=== PATIENT | male | born 1960 | race Native Hawaiian/Other Pacific Islander ===

== ENCOUNTER 2016-12-16 08:19 | Day surgery (SDC) | payer OTHER ==
[2016-12-03 08:27] VITALS: BMI 28.5
[2016-12-16] MEDS ORDERED: Lidocaine 2% w Epi 1:100,000 Inj IJ ONE (09:32)
--- NOTE | 2016-12-16 10:21 | PCM.SURG1 ---
Surgeon's Initial Post Op Note - Surgeon's Notes Surgeon: Dr. Spencer Brass Pourer: Tana Dietrich PGY2 Type of Anesthesia: Local Pre-Operative Diagnosis: back cyst Operative Findings: Back cyst 2x2cm Post-Operative Diagnosis: Same Operation Performed: Excision of back cyst Specimen/Specimens Removed: Back cyst [id number] Estimated Blood Loss: EBL {In ML}: 1 Blood Products Given: N/A Drains Used: No Drains Post-Op Condition: Good Date of Surgery/Procedure: 12/16/16 Time of Surgery/Procedure: 10:21
[2016-12-16 10:54] VITALS: BP 150/91; PULSE 60; RESP 18; TEMP 98.3; O2SAT 96
--- NOTE | 2016-12-17 22:06 | OP ---
PROCEDURE DATE: 12/16/2016 SURGEON: Ashish Spencer MD RIDES SUPERVISOR: Dr. Tana Dietrich. ANESTHESIA: Local 1% lidocaine with epinephrine. PREOPERATIVE DIAGNOSIS: Sebaceous cyst, upper back. POSTOPERATIVE DIAGNOSIS: Sebaceous cyst, upper back. PROCEDURE: Excision of the sebaceous cyst, upper back. DESCRIPTION OF PROCEDURE: With the patient in the prone position, the upper back and lower neck were prepped and draped in the usual sterile manner. A 2-cm rounded mass was noted near the midline of the upper back just below the lower neck with a central punctum. The skin surrounding the mass was infiltrated with 2% lidocaine with epinephrine. An elliptical incision was made encompassing the area of the visible punctum, taken down through the full thickness of skin. The cyst wall was encountered and sharply dissected free of the surrounding subcutaneous tissue. There was noted to be a significant thickening of the surrounding tissue consistent with possible previous inflammation, and the cyst was sharply dissected free of the surrounding tissue and removed. The operative site was examined for hemostasis. Small bleeders were cauterized and closure was performed with running subcuticular suture of 4-0 Monocryl and Steri-Strips. A dry sterile dressing was applied. The patient tolerated the procedure well and transferred to day stay in stable condition. Estimated blood loss for the procedure was 1 mL. Ashish Spencer MD
== END 2016-12-16 10:58 | disposition home or self-care (01) ==
LOC: C.SDS 08:19
PROVIDERS: ATTEND Specialist
DX: L72.3 Sebaceous cyst (principal)

== ENCOUNTER 2016-12-24 10:48 | Inpatient (IN) | payer OTHER ==
[2016-12-24 10:48] VITALS: BMI 28.5
--- NOTE | 2016-12-24 11:02 | C.PDOC ---
History Of Present Illness <Prachi Markham - Last Filed: 12/24/16 14:52> <Jordana Telelz - Last Filed: 12/27/16 13:23> 56 y/o male brought to ED by EMS for evaluation of syncope this morning and head injury. At ED patient states she is feeling hot, lightheaded and room spinning since yesterday. Patient reports increased sleepiness and awoke middle of night to use bathroom, started feeling lightheaded and this morning woke up tried walking to bathroom and passed out, waking up on floor. Patient has forehead contusion. Patient denies Hx of CAD or current chest pain, palpitations , focal weakness, numbness, nausea, vomiting, headache and denies recent URI or sinusitis.No other complaints at this time SYNCOPE THIS MORNING +HEAD INJURY. PS FEELING HOT, LIGHTHEADED/ROOM SPINNING SINCE YEST. +INCR SLEEPINESS. AWOKE MIDDLE OF NIGHT TO USE BATHROOM, FEELING LIGHTHEADED. AWOKE THIS MORNING, TRIED WALKING TO BATHROOM AND PASSED OUT. AWOKE ON FLOOR. NO ASSOC CP, PALP, FOCAL WEAK/NUMB. +FOREHEAD CONTUSION. NO NV, GRAYSON. DENIES RECENT URI, SINUSITIS. DENIES HO CAD EXAM MILD DIST NONTOXIC HEENT +L FOREHEAD CONTUSION W SWELLING; NO NYSTAGMUS NECK CCOLLAR IN PLACE CV RRR TACHY NEURO NO FOCAL DEF REMAINDER NEG (Prachi Markham) History Per: Patient, EMS History/Exam Limitations: no limitations Onset/Duration Of Symptoms: Hrs Current Symptoms Are (Timing): Still Present <Prachi Markham - Last Filed: 12/24/16 14:52> <Jordana Tellez - Last Filed: 12/27/16 13:23> Time Seen by Provider: 12/24/16 10:56 Chief Complaint (Nursing): Syncope Past Medical History Reviewed: Historical Data, Nursing Documentation, Vital Signs - Medical History PMH: HTN Surgical History: No Surg Hx, Tonsillectomy Family History: States: No Known Family Hx <Prachi Markham - Last Filed: 12/24/16 14:52> Vital Signs: Last Vital Signs Temp 98.2 F 12/26/16 07:05 Pulse 75 12/26/16 07:47 Resp 17 12/26/16 07:05 BP 132/81 12/26/16 07:05 Pulse Ox 100 12/26/16 07:05 Review Of Systems Except As Marked, All Systems Reviewed And Found Negative. Constitutional: Negative for: Fever, Chills Cardiovascular: Negative for: Chest Pain, Palpitations Gastrointestinal: Negative for: Nausea, Vomiting Skin: Negative for: Rash Neurological: Positive for: Other (lightheadedness). Negative for: Weakness, Numbness, Headache <Prachi Markham - Last Filed: 12/24/16 14:52> Physical Exam - Physical Exam Appears: Non-toxic, Other (Mild distress) Skin: Normal Color, Warm, Dry, No Rash Head: Swelling (to left forehead ), Other (Left forehead contusion ) Eye(s): bilateral: Normal Inspection, PERRL, EOMI, Other (No nystagmus) Oral Mucosa: Moist Neck: Other (Neck collar in place) Chest: Symmetrical Cardiovascular: Rhythm Regular, Other (Tachycardic) Respiratory: Normal Breath Sounds, No Rales, No Rhonchi, No Wheezing Extremity: Capillary Refill (<2 seconds), No Deformity Extremity: Bilateral: Atraumatic Neurological/Psych: Oriented x3, Normal Motor, Normal Sensation, Other (No focal deficits) <Prachi Markham - Last Filed: 12/24/16 14:52> ED Course And Treatment - Laboratory Results Result Diagrams: 12/24/16 11:42 12/24/16 11:42 ECG: Interpreted By Me ECG Rhythm: Sinus Tachycardia ECG Interpretation: Abnormal Rate From EC (bpm) O2 Sat by Pulse Oximetry: 99 (ra) Pulse Ox Interpretation: Normal - Radiology CXR: Interpreted by Me, Viewed By Vt CXR Interpretation: Yes: No Acute Disease. No: Infiltrates, Pnemothorax <Prachi Markham - Last Filed: 12/24/16 14:52> - Laboratory Results Result Diagrams: 12/26/16 06:29 12/25/16 09:51 <Jordana Tellez - Last Filed: 12/27/16 13:23> Progress - Data Reviewed Data Reviewed: Lab, Diagnostic imaging, EKG, Old records - Continuity of Care Discussed patient case with:: Patient, PMD <Prachi Markham - Last Filed: 12/24/16 14:52> <Jordana Tellez - Last Filed: 12/27/16 13:23> - Re-Evaluation Re-evaluation Note: 12/24/16 14:51 D/W DR KHANNA WILL ADMIT (Prachi Markham) Disposition <Prachi Markham - Last Filed: 12/24/16 14:52> - Disposition Disposition Time: 15:26 <RosalindaJordana Tatiana - Last Filed: 12/27/16 13:23> - Disposition Disposition: HOSPITALIZED Condition: STABLE - Clinical Impression Clinical Impression: Syncope, Closed head injury - Scribe Statement The provider has reviewed the documentation as recorded by the Scribe <Prachi Markham - Last Filed: 12/24/16 14:52> <Jordana Tellez - Last Filed: 12/27/16 13:23> - Scribe Statement Anuj Varma All medical record entries made by the Scribe were at my direction and personally dictated by me. I have reviewed the chart and agree that the record accurately reflects my personal performance of the history, physical exam, medical decision making, and the department course for this patient. I have also personally directed, reviewed, and agree with the discharge instructions and disposition. (Prachi Markham) Physician Patient Turnover Patient Signed Over To: Jordana Tellez Handoff Comments: FU CT CSPINE, DISPO <Prachi Markham - Last Filed: 12/24/16 14:52> Addendum <Prachi Markham - Last Filed: 12/24/16 14:52> <Jordana Tellez Tatiana - Last Filed: 12/27/16 13:23> Addendum: 12/24/16 15:26 CT Cspine (-) for fx/subluxation. C-collar removed, patient admitted under Dr. Khanna' service for syncope, head injury. Accession No. : [id number] Patient Name / ID : GRADY ANDRADE / [id number] Exam Date : 12/24/2016 14:12:26 ( Approved ) Study Comment : Sex / Age : M / 56Y Creator : Melia Ballesteros MD Dictator : Tip Stretcher : Animal Rehabilitator : Melia Ballesteros MD Approver2 : Report Date : 12/24/2016 15:22:58 My Comment : CT cervical spine without IV contrast Indication: Fall Comparison: None available Technique: Axial computed tomography images were obtained of the cervical spine without the use of intravenous contrast. Coronal and sagittal reformatted images were created and reviewed. This CT exam was performed using 1 or more of the falling dose reduction techniques: Automated exposure control, adjustment of the MAA and/or kV according to patient size, and/or use of iterative reconstruction technique. Radiation dose: Total exam DLP = 435.43 mGy-cm. Findings: Straightening of the normal cervical lordosis may be related to muscle spasm or positioning. Extensive degenerative changes at C1-C2. Well corticated ossific density about the posterior C1 arch of the atlas. Cortical irregularity and small lucencies noted predominantly within the midportion of the C2 vertebral body. Correlate for degenerative changes versus remote injury. No evidence of soft tissue edema. There is no evidence of acute displaced fracture or subluxation. Vertebral body heights appear within normal limits. Intervertebral disc spaces appear unremarkable. The prevertebral soft tissues and spinolaminar lines appear intact. The lateral masses are preserved. The dens tip is intact sclerotic appearing dens tip appears intact. There is proper alignment of the lateral masses of C1 with the C2 vertebral body. Calcification involving the anterior and posterior longitudinal ligaments. Included portions of the thyroid gland appears heterogeneous with evidence of hypodense nodules bilaterally as well as a punctate calcification at the right lower pole. Included portions of lung apices appear clear. Impression: Straightening of the normal cervical lordosis may be related to muscle spasm or positioning. Extensive degenerative changes at C1-C2. Well corticated ossific density about the posterior C1 arch of the atlas. Cortical irregularity and small lucencies noted predominantly within the midportion of the C2 vertebral body. Correlate for degenerative changes versus remote injury. Further evaluation may be considered with MRI if indicated. No evidence of soft tissue edema. No evidence of acute displaced fracture or subluxation. Included portions of the thyroid gland appears heterogeneous with evidence of hypodense nodules bilaterally as well as punctate calcification at the right lower pole. Outpatient follow-up thyroid ultrasound may be considered. (Jordana Tellez)
[2016-12-24] MEDS ORDERED: Sodium Chloride 0.9% 1,000 ML IV ONE (11:17)
[2016-12-24] MEDS ORDERED: Sodium Chloride 0.9% 1,000 ML ONE (11:31)
[2016-12-24 11:48] LABS: BASO # 0.1 K/uL (0.0-0.2); EOS # 0.1 K/uL (0.0-0.7); EOS % 0.7 % (0.0-4.0); HEMATOCRIT 33.9 % (35.0-51.0); LYMPH # 1.4 K/uL (1.0-4.3); LYMPH % 12.5 % (20.0-40.0); MEAN CELL VOLUME 85.6 fL (80.0-94.0); MEAN CORPUSCULAR HEMOGLOBIN 29.4 pg (27.0-31.0); MEAN CORPUSCULAR HGB CONC 34.3 g/dL (33.0-37.0); MEAN PLATELET VOLUME 7.8 fL (7.2-11.7); MONO # 0.5 K/uL (0.0-0.8); MONO % 4.3 % (0.0-10.0); RED CELL DISTRIBUTION WIDTH 13.5 % (11.5-14.5); WHITE BLOOD COUNT 11.5 K/uL (4.8-10.8)
[2016-12-24 11:57] LABS: CHLORIDE 101 mmol/L (98-107)
[2016-12-24 11:58] LABS: SODIUM 137 mmol/L (132-148)
[2016-12-24 12:00] LABS: ALB/GLOB RATIO 1.3 (1.0-2.1); ALKALINE PHOSPHATASE 48 U/L (38-126); AST/SGOT 33 U/L (17-59); BILIRUBIN,TOTAL 0.8 mg/dL (0.2-1.3); BLOOD UREA NITROGEN 46 mg/dL (9-20); CARBON DIOXIDE 19 mmol/L (22-30); GFR AFRICAN-AMERICAN > 60; POTASSIUM 4.8 mmol/L (3.6-5.2); TOTAL PROTEIN 6.7 g/dL (6.3-8.3)
[2016-12-24 12:01] LABS: ALT/SGPT 26 U/L (21-72); CALCIUM 8.1 mg/dl (8.6-10.4); GLUCOSE,RANDOM 199 mg/dL (75-110)
--- NOTE | 2016-12-24 12:18 | RAD ---
HISTORY: chest pain COMPARISON: None available. TECHNIQUE: Chest, one view. FINDINGS: Examination limited by habitus and hypoinflation. LUNGS: No focal consolidation. Please note that chest x-ray has limited sensitivity for the detection of pulmonary masses. PLEURA: No significant pleural effusion identified. No definite pneumothorax . CARDIOVASCULAR: Heart size appears within normal limits. OSSEOUS STRUCTURES: Degenerative changes. VISUALIZED UPPER ABDOMEN: Unremarkable. OTHER FINDINGS: None. IMPRESSION: No focal consolidation, significant pleural effusion, or definite pneumothorax identified.
--- NOTE | 2016-12-24 14:34 | CT ---
PROCEDURE: CT HEAD WITHOUT CONTRAST. HISTORY: syncope COMPARISON: None available. TECHNIQUE: Axial computed tomography images were obtained through the head/brain without intravenous contrast. Radiation dose: Total exam DLP = 1105.68 mGy-cm. This CT exam was performed using one or more of the following dose reduction techniques: Automated exposure control, adjustment of the mA and/or kV according to patient size, and/or use of iterative reconstruction technique. FINDINGS: HEMORRHAGE: No intracranial hemorrhage. BRAIN: No mass effect or edema. No atrophy or chronic microvascular ischemic changes. VENTRICLES: Unremarkable. No hydrocephalus. CALVARIUM: Unremarkable. PARANASAL SINUSES: Unremarkable as visualized. No significant inflammatory changes. MASTOID AIR CELLS: There is partial opacification of both mastoids larger on the right. Correlate clinically for mastoiditis P OTHER FINDINGS: None. IMPRESSION: No evidence of acute intracranial hemorrhage intracranial collection mass effect or midline shift. Partial opacification of the mastoids larger on the right.
--- NOTE | 2016-12-24 15:24 | CT ---
CT cervical spine without IV contrast Indication: Fall Comparison: None available Technique: Axial computed tomography images were obtained of the cervical spine without the use of intravenous contrast. Coronal and sagittal reformatted images were created and reviewed. This CT exam was performed using 1 or more of the falling dose reduction techniques: Automated exposure control, adjustment of the MAA and/or kV according to patient size, and/or use of iterative reconstruction technique. Radiation dose: Total exam DLP = 435.43 mGy-cm. Findings: Straightening of the normal cervical lordosis may be related to muscle spasm or positioning. Extensive degenerative changes at C1-C2. Well corticated ossific density about the posterior C1 arch of the atlas. Cortical irregularity and small lucencies noted predominantly within the midportion of the C2 vertebral body. Correlate for degenerative changes versus remote injury. No evidence of soft tissue edema. There is no evidence of acute displaced fracture or subluxation. Vertebral body heights appear within normal limits. Intervertebral disc spaces appear unremarkable. The prevertebral soft tissues and spinolaminar lines appear intact. The lateral masses are preserved. The dens tip is intact sclerotic appearing dens tip appears intact. There is proper alignment of the lateral masses of C1 with the C2 vertebral body. Calcification involving the anterior and posterior longitudinal ligaments. Included portions of the thyroid gland appears heterogeneous with evidence of hypodense nodules bilaterally as well as a punctate calcification at the right lower pole. Included portions of lung apices appear clear. Impression: Straightening of the normal cervical lordosis may be related to muscle spasm or positioning. Extensive degenerative changes at C1-C2. Well corticated ossific density about the posterior C1 arch of the atlas. Cortical irregularity and small lucencies noted predominantly within the midportion of the C2 vertebral body. Correlate for degenerative changes versus remote injury. Further evaluation may be considered with MRI if indicated. No evidence of soft tissue edema. No evidence of acute displaced fracture or subluxation. Included portions of the thyroid gland appears heterogeneous with evidence of hypodense nodules bilaterally as well as punctate calcification at the right lower pole. Outpatient follow-up thyroid ultrasound may be considered.
[2016-12-24] MEDS ORDERED: Sodium Chloride 0.45% 1,000 ML IV ONE (16:30)
[2016-12-24] MEDS: Sodium Chloride 0.45% 1,000 ML IV SCH (16:34)
[2016-12-24 17:29] LABS: HEMATOCRIT 29.9 % (35.0-51.0); MEAN CORPUSCULAR HEMOGLOBIN 28.8 pg (27.0-31.0); MEAN CORPUSCULAR HGB CONC 33.9 g/dL (33.0-37.0); MEAN PLATELET VOLUME 7.2 fL (7.2-11.7); RED CELL DISTRIBUTION WIDTH 13.3 % (11.5-14.5); WHITE BLOOD COUNT 12.6 K/uL (4.8-10.8)
[2016-12-24 21:59] LABS: RBC URINE < 1 /hpf (0-3); URINE BILIRUBIN NEGATIVE (NEGATIVE); URINE BLOOD NEGATIVE (NEGATIVE); URINE COLOR Straw (YELLOW); URINE GLUCOSE (UA) 2+ mg/dL (Normal); URINE KETONE TRACE mg/dL (NEGATIVE); URINE LEUKOCYTE ESTERASE NEG Leu/uL (Negative); URINE PROTEIN NEGATIVE (NEGATIVE); URINE UROBILINOGEN NORMAL mg/dL (0.2-1.0); WBC URINE 1 /hpf (0-5)
[2016-12-25] MEDS: Sodium Chloride 0.45% 1,000 ML IV SCH ×2 (05:54→18:44)
[2016-12-25] MEDS: (Novolog) Insulin Aspart, Recombinant 100 u/ml 10 ml vial SC SCH ×4 (08:00→22:12)
--- NOTE | 2016-12-25 09:04 | CP.PCM.HP ---
History of Present Illness - History of Present Illness History of Present Illness: CC: Pass out 56 y/o male with HTN and NIDDM. Patient had dental procedure and was taking Motrin. Patient has 5 days of black stool. he then felt warm 2 days tuan and felt dizzy. Yesterday he suddenly pass out. Present on Admission - Present on Admission Any Indicators Present on Admission: Yes History of DVT/PE: No History of Uncontrolled Diabetes: No Urinary Catheter: No Decubitus Ulcer Present: No Review of Systems - Review of Systems Systems not reviewed;Unavailable: Acuity of Condition - Constitutional Constitutional: Headache, Lethargy, Malaise. absent: Fever, Night Sweats, Sleep Apnea - EENT Eyes: absent: Itchy Eyes, Loss of Peripheral Vision, Pain, Sees Flashes Ears: Dizziness. absent: Ear Discharge, Ear Pain, Tinnitus, Disequilibrium Nose/Mouth/Throat: absent: Epistaxis, Nasal Congestion, Post Nasal Drip, Change in Voice, Dysphagia, Halitosis - Cardiovascular Cardiovascular: Palpitations. absent: Chest Pain, Diaphoresis, Dyspnea, Edema, Leg Edema, Orthopnea, Paroxysmal Nocturnal Dyspnea - Respiratory Respiratory: absent: Cough, Dyspnea on Exertion, Chest Congestion - Gastrointestinal Gastrointestinal: absent: Abdominal Pain, Diarrhea, Dyspepsia, Dysphagia, Heartburn, Nausea - Genitourinary Genitourinary: absent: Urinary Incontinence, Urinary Frequency, Urinary Hesitance, Voiding Freq/Small Amts - Integumentary Integumentary: absent: Bleeding Lesions, New Lesions, Pruritus, Rash - Neurological Neurological: Numbness, Syncope. absent: Abnormal Gait, Burning Sensations, Focal Weakness, Lack of Coordination, Memory Loss, Tremor, Vertigo - Hematologic/Lymphatic Hematologic: absent: Easy Bleeding, Easy Bruising, Lymphadenopathy Past Patient History - Infectious Disease Hx of Infectious Diseases: None - Past Medical History & Family History Past Medical History?: Yes - Past Social History Smoking Status: Never Smoked - CARDIAC Hx Hypertension: Yes - HEENT Hx HEENT Problems: Yes Other/Comment: HX: TONSILLITIS - ENDOCRINE/METABOLIC Hx Endocrine Disorders: Yes Hx Diabetes Mellitus Type 2: Yes - HEMATOLOGICAL/ONCOLOGICAL Hx Blood Disorders: Yes Other/Comment: HX: "LIPOSARCOMA"-RIGHT LEG LUMP-BUT NO FOLLOWUP TREATMENT PER DR. INMAN 2004-PER DR. DURÁN'S NOTES ON 11/21/16.(PT. CONFIRMED) - INTEGUMENTARY Hx Dermatological Problems: Yes Other/Comment: HX: RIGHT LEG LUMP DIAGNOSED "LIPOSARCOMA" BUT NO FOLLOWUP TREATMENT PER DR. INMAN 2004-PER DR. DURÁN'S NOTES OF 11/21/16.(PT. CONFIRMED) . HX: CYST ON BACK OF NECK(LEFT). - MUSCULOSKELETAL/RHEUMATOLOGICAL Hx Falls: No - PSYCHIATRIC Hx Substance Use: No - SURGICAL HISTORY Hx Tonsillectomy: Yes - ANESTHESIA Hx Anesthesia: Yes Hx Anesthesia Reactions: No Hx Malignant Hyperthermia: No Meds Allergies/Adverse Reactions: Allergies Allergy/AdvReac Type Severity Reaction Status Date / Time No Known Allergies Allergy Verified 12/03/16 08:26 Physical Exam - Constitutional Appears: No Acute Distress - Eye Exam Eye Exam: absent: Nystagmus Pupil Exam: absent: Irregular, Miosis - ENT Exam ENT Exam: absent: Mucous Membranes Moist - Neck Exam Neck exam: Negative for: Full Rom, Lymphadenopathy, Normal Inspection - Respiratory Exam Respiratory Exam: Clear to Auscultation Bilateral. absent: Rales, Rhonchi, Wheezes - Cardiovascular Exam Cardiovascular Exam: +S1, +S2, Systolic Murmur. absent: Gallop, REGULAR RHYTHM , JVD - GI/Abdominal Exam GI & Abdominal Exam: Soft. absent: Guarding, Hernia, Hypoactive Bowel Sounds, Tenderness - Neurological Exam Neurological exam: Alert, Oriented x3 Results - Vital Signs Recent Vital Signs: Last Vital Signs Temp 98.2 F 12/25/16 07:05 Pulse 88 12/25/16 07:05 Resp 17 12/25/16 07:05 BP 105/65 12/25/16 07:05 Pulse Ox 98 12/25/16 07:05 - Labs Result Diagrams: 12/24/16 17:23 12/24/16 11:42 Labs: Laboratory Results - last 24 hr 12/24/16 12/24/16 12/24/16 11:42 11:42 12:25 WBC 11.5 H RBC 3.96 L Hgb 11.6 L Hct 33.9 L MCV 85.6 MCH 29.4 MCHC 34.3 RDW 13.5 Plt Count 307 MPV 7.8 Neut % (Auto) 81.5 H Lymph % (Auto) 12.5 L [place] % (Auto) 4.3 Eos % (Auto) 0.7 Baso % (Auto) 1.0 Neut # 9.4 H Lymph # 1.4 [place] # 0.5 Eos # 0.1 Baso # 0.1 PT 11.9 INR 1.0 APTT 26 D-Dimer, Quantitative 208 Sodium 137 Potassium 4.8 Chloride 101 Carbon Dioxide 19 L Anion Gap 22 H BUN 46 H Creatinine 0.7 L Est GFR ( Amer) > 60 Est GFR (Non-Af Amer) > 60 POC Glucose (mg/dL) Random Glucose 199 H Calcium 8.1 L Total Bilirubin 0.8 AST 33 ALT 26 Alkaline Phosphatase 48 Troponin I 0.0220 Total Protein 6.7 Albumin 3.8 Globulin 3.0 Albumin/Globulin Ratio 1.3 Urine Color Urine Clarity Urine pH Ur Specific [place] Urine Protein Urine Glucose (UA) Urine Ketones Urine Blood Urine Nitrate Urine Bilirubin Urine Urobilinogen Ur Leukocyte Esterase Urine WBC (Auto) Urine RBC (Auto) 12/24/16 12/24/16 12/24/16 17:23 17:47 20:55 WBC 12.6 H RBC 3.52 L Hgb 10.2 L Hct 29.9 L MCV 85.0 MCH 28.8 MCHC 33.9 RDW 13.3 Plt Count 282 MPV 7.2 Neut % (Auto) Lymph % (Auto) [place] % (Auto) Eos % (Auto) Baso % (Auto) Neut # Lymph # [place] # Eos # Baso # PT INR APTT D-Dimer, Quantitative Sodium Potassium Chloride Carbon Dioxide Anion Gap BUN Creatinine Est GFR ( Amer) Est GFR (Non-Af Amer) POC Glucose (mg/dL) 140 H Random Glucose Calcium Total Bilirubin AST ALT Alkaline Phosphatase Troponin I Total Protein Albumin Globulin Albumin/Globulin Ratio Urine Color Straw Urine Clarity Clear Urine pH 5.0 Ur Specific [place] 1.020 Urine Protein Negative Urine Glucose (UA) 2+ H Urine Ketones Trace Urine Blood Negative Urine Nitrate Negative Urine Bilirubin Negative Urine Urobilinogen Normal Ur Leukocyte Esterase Neg Urine WBC (Auto) 1 Urine RBC (Auto) < 1 12/24/16 12/25/16 21:02 06:43 WBC RBC Hgb Hct MCV MCH MCHC RDW Plt Count MPV Neut % (Auto) Lymph % (Auto) [place] % (Auto) Eos % (Auto) Baso % (Auto) Neut # Lymph # [place] # Eos # Baso # PT INR APTT D-Dimer, Quantitative Sodium Potassium Chloride Carbon Dioxide Anion Gap BUN Creatinine Est GFR ( Amer) Est GFR (Non-Af Amer) POC Glucose (mg/dL) 326 H 161 H Random Glucose Calcium Total Bilirubin AST ALT Alkaline Phosphatase Troponin I Total Protein Albumin Globulin Albumin/Globulin Ratio Urine Color Urine Clarity Urine pH Ur Specific [place] Urine Protein Urine Glucose (UA) Urine Ketones Urine Blood Urine Nitrate Urine Bilirubin Urine Urobilinogen Ur Leukocyte Esterase Urine WBC (Auto) Urine RBC (Auto) - EKG Data EKG Interpreted by: Myself EKG shows normal: Sinus rhythm Rate: Normal Assessment & Plan - Assessment and Plan (Free Text) Assessment: Syncope likely GI bleed NIDDM. HTN For GI and Cardio eval Suportive care
--- NOTE | 2016-12-25 09:30 | CP.PCM.CON ---
History of Present Illness - History of Present Illness History of Present Illness: ASked to see patient for anemia. PMH- NIDDM. Had head/neck cyst surgery few weeks ago. Had dental surgery few days ago. Took motrin for few days. Takes aspirin regularly. Reports few days of black stool. Yesterday- syncope. No abdom pain, vomiting.. denies wt loss, ulcer/. Had colonosocpy 6 months ago- Dr Tovar. Review of Systems - Constitutional Constitutional: Chills, Fatigue - EENT Eyes: absent: Photophobia Nose/Mouth/Throat: absent: Dysphagia - Cardiovascular Cardiovascular: Syncope. absent: Chest Pain, Dyspnea - Respiratory Respiratory: absent: Dyspnea, Hemoptysis, Wheezing - Gastrointestinal Gastrointestinal: Melena. absent: Abdominal Pain, Bloating, Coffee Ground Emesis, Constipation, Diarrhea, Dysphagia, Hematemesis, Hematochezia, Nausea, Vomiting - Genitourinary Genitourinary: absent: Hematuria - Musculoskeletal Musculoskeletal: absent: Muscle Cramps, Muscle Weakness - Integumentary Integumentary: absent: Rash, Jaundice - Neurological Neurological: absent: Convulsions Past Patient History - Infectious Disease Hx of Infectious Diseases: None - Past Medical History & Family History Past Medical History?: Yes - Past Social History Smoking Status: Never Smoked - CARDIAC Hx Hypertension: Yes - HEENT Hx HEENT Problems: Yes Other/Comment: HX: TONSILLITIS - ENDOCRINE/METABOLIC Hx Endocrine Disorders: Yes Hx Diabetes Mellitus Type 2: Yes - HEMATOLOGICAL/ONCOLOGICAL Hx Blood Disorders: Yes Other/Comment: HX: "LIPOSARCOMA"-RIGHT LEG LUMP-BUT NO FOLLOWUP TREATMENT PER DR. INMAN 2004-PER DR. DURÁN'S NOTES ON 11/21/16.(PT. CONFIRMED) - INTEGUMENTARY Hx Dermatological Problems: Yes Other/Comment: HX: RIGHT LEG LUMP DIAGNOSED "LIPOSARCOMA" BUT NO FOLLOWUP TREATMENT PER DR. INMAN 2004-PER DR. DURÁN'S NOTES OF 11/21/16.(PT. CONFIRMED) . HX: CYST ON BACK OF NECK(LEFT). - MUSCULOSKELETAL/RHEUMATOLOGICAL Hx Falls: No - PSYCHIATRIC Hx Substance Use: No - SURGICAL HISTORY Hx Tonsillectomy: Yes - ANESTHESIA Hx Anesthesia: Yes Hx Anesthesia Reactions: No Hx Malignant Hyperthermia: No Meds Allergies/Adverse Reactions: Allergies Allergy/AdvReac Type Severity Reaction Status Date / Time No Known Allergies Allergy Verified 12/03/16 08:26 - Medications Medications: Current Medications Sodium Chloride (Sodium Chloride 0.45%) 1,000 mls @ 75 mls/hr IV .[id number] [facility] Last Admin: 12/25/16 05:54 Dose: 75 mls/hr Insulin Aspart (Novolog) 0 unit SC ACHS [facility] PRN Reason: Protocol Meclizine HCl (Antivert) 25 mg PO BID [facility] Last Admin: 12/24/16 19:10 Dose: 25 mg Pantoprazole Sodium (Protonix Inj) 40 mg IVP BID [facility] Last Admin: 12/24/16 23:00 Dose: 40 mg Physical Exam - Constitutional Appears: Non-toxic - Neck Exam Neck exam: Negative for: Tenderness - Respiratory Exam Respiratory Exam: Clear to Auscultation Bilateral - Cardiovascular Exam Cardiovascular Exam: RRR - GI/Abdominal Exam GI & Abdominal Exam: Normal Bowel Sounds, Soft. absent: Distended, Guarding, Mass, Rebound, Tenderness - Extremities Exam Extremities exam: Negative for: calf tenderness - Neurological Exam Neurological exam: Alert, Oriented x3 - Psychiatric Exam Psychiatric exam: Normal Affect Results - Vital Signs Recent Vital Signs: Last Vital Signs Temp 98.2 F 12/25/16 07:05 Pulse 88 12/25/16 09:00 Resp 17 12/25/16 07:05 BP 105/65 12/25/16 07:05 Pulse Ox 98 12/25/16 07:05 - Labs Result Diagrams: 12/24/16 17:23 12/24/16 11:42 Labs: Laboratory Results - last 24 hr 12/24/16 12/24/16 12/24/16 11:42 11:42 12:25 WBC 11.5 H RBC 3.96 L Hgb 11.6 L Hct 33.9 L MCV 85.6 MCH 29.4 MCHC 34.3 RDW 13.5 Plt Count 307 MPV 7.8 Neut % (Auto) 81.5 H Lymph % (Auto) 12.5 L [place] % (Auto) 4.3 Eos % (Auto) 0.7 Baso % (Auto) 1.0 Neut # 9.4 H Lymph # 1.4 Tyrrell # 0.5 Eos # 0.1 Baso # 0.1 PT 11.9 INR 1.0 APTT 26 D-Dimer, Quantitative 208 Sodium 137 Potassium 4.8 Chloride 101 Carbon Dioxide 19 L Anion Gap 22 H BUN 46 H Creatinine 0.7 L Est GFR ( Amer) > 60 Est GFR (Non-Af Amer) > 60 POC Glucose (mg/dL) Random Glucose 199 H Calcium 8.1 L Total Bilirubin 0.8 AST 33 ALT 26 Alkaline Phosphatase 48 Troponin I 0.0220 Total Protein 6.7 Albumin 3.8 Globulin 3.0 Albumin/Globulin Ratio 1.3 Urine Color Urine Clarity Urine pH Ur Specific [place] Urine Protein Urine Glucose (UA) Urine Ketones Urine Blood Urine Nitrate Urine Bilirubin Urine Urobilinogen Ur Leukocyte Esterase Urine WBC (Auto) Urine RBC (Auto) 12/24/16 12/24/16 12/24/16 17:23 17:47 20:55 WBC 12.6 H RBC 3.52 L Hgb 10.2 L Hct 29.9 L MCV 85.0 MCH 28.8 MCHC 33.9 RDW 13.3 Plt Count 282 MPV 7.2 Neut % (Auto) Lymph % (Auto) Tyrrell % (Auto) Eos % (Auto) Baso % (Auto) Neut # Lymph # [place]rell # Eos # Baso # PT INR APTT D-Dimer, Quantitative Sodium Potassium Chloride Carbon Dioxide Anion Gap BUN Creatinine Est GFR ( Amer) Est GFR (Non-Af Amer) POC Glucose (mg/dL) 140 H Random Glucose Calcium Total Bilirubin AST ALT Alkaline Phosphatase Troponin I Total Protein Albumin Globulin Albumin/Globulin Ratio Urine Color Straw Urine Clarity Clear Urine pH 5.0 Ur Specific [place] 1.020 Urine Protein Negative Urine Glucose (UA) 2+ H Urine Ketones Trace Urine Blood Negative Urine Nitrate Negative Urine Bilirubin Negative Urine Urobilinogen Normal Ur Leukocyte Esterase Neg Urine WBC (Auto) 1 Urine RBC (Auto) < 1 12/24/16 12/25/16 21:02 06:43 WBC RBC Hgb Hct MCV MCH MCHC RDW Plt Count MPV Neut % (Auto) Lymph % (Auto) [place] % (Auto) Eos % (Auto) Baso % (Auto) Neut # Lymph # [place] # Eos # Baso # PT INR APTT D-Dimer, Quantitative Sodium Potassium Chloride Carbon Dioxide Anion Gap BUN Creatinine Est GFR ( Amer) Est GFR (Non-Af Amer) POC Glucose (mg/dL) 326 H 161 H Random Glucose Calcium Total Bilirubin AST ALT Alkaline Phosphatase Troponin I Total Protein Albumin Globulin Albumin/Globulin Ratio Urine Color Urine Clarity Urine pH Ur Specific [place] Urine Protein Urine Glucose (UA) Urine Ketones Urine Blood Urine Nitrate Urine Bilirubin Urine Urobilinogen Ur Leukocyte Esterase Urine WBC (Auto) Urine RBC (Auto) Assessment & Plan (1) Syncope Assessment and Plan: Due to GI bleed Status: Acute (2) Anemia Assessment and Plan: GI bleed Status: Acute (3) Melena Assessment and Plan: - Likely ulcer. On NSAID and aspirin. REC: NPO PPI Check Hb EGD. Hold NSAID/ASA Status: Acute (4) Diabetes mellitus Status: Acute
[2016-12-25 09:54] LABS: HEMATOCRIT 23.8 % (35.0-51.0); MEAN CELL VOLUME 85.4 fL (80.0-94.0); MEAN CORPUSCULAR HEMOGLOBIN 29.2 pg (27.0-31.0); MEAN CORPUSCULAR HGB CONC 34.2 g/dL (33.0-37.0); MEAN PLATELET VOLUME 7.1 fL (7.2-11.7); RED CELL DISTRIBUTION WIDTH 13.7 % (11.5-14.5); WHITE BLOOD COUNT 6.4 K/uL (4.8-10.8)
[2016-12-25 10:01] LABS: CHLORIDE 105 mmol/L (98-107); SODIUM 139 mmol/L (132-148)
[2016-12-25 10:02] LABS: POTASSIUM 3.7 mmol/L (3.6-5.2)
[2016-12-25 10:03] LABS: GFR AFRICAN-AMERICAN > 60
[2016-12-25 10:04] LABS: ALB/GLOB RATIO 1.1 (1.0-2.1); ALKALINE PHOSPHATASE 40 U/L (38-126); ALT/SGPT 34 U/L (21-72); AST/SGOT 17 U/L (17-59); BILIRUBIN,TOTAL 0.3 mg/dL (0.2-1.3); BLOOD UREA NITROGEN 22 mg/dL (9-20); CARBON DIOXIDE 23 mmol/L (22-30); GLUCOSE,RANDOM 139 mg/dL (75-110)
[2016-12-25 10:05] LABS: CALCIUM 7.5 mg/dl (8.6-10.4)
[2016-12-25] MEDS ORDERED: Pantoprazole 80 MG in Sodium Chloride 0.9% 100 ML IVP SCH (11:00)
[2016-12-25] MEDS ORDERED: Propofol 10 mg/ml Inj (20 ML) ONE (11:26)
[2016-12-25] MEDS ORDERED: Lactated Ringer's 1,000 ML IV ONE (11:30)
[2016-12-25 12:06] VITALS: O2SAT 100
[2016-12-25] MEDS ORDERED: Pantoprazole 80 MG in Sodium Chloride 0.9% 100 ML IVPB SCH (16:00)
--- NOTE | 2016-12-25 17:00 | CP.PCM.CON ---
History of Present Illness - History of Present Illness History of Present Illness: I was asked to see patient by Dr Lo. Patient is a 56 year old male with PMH HTN, hypercholesterolemia who presents with syncope. The patient developed heat of the lower head and then lightheadedness and dizziness. The patient was noted to have near syyncope. He denies chest pain or dyspnea. Review of Systems - Constitutional Constitutional: absent: As Per HPI, Anorexia, Chills, Daytime Sleepiness, Excessive Sweating, Fatigue, Fever, Frequent Falls, Headache, Increased Appetite , Lethargy, Malaise, Night Sweats, Snoring, Sleep Apnea, Weight Gain, Weight Loss, Weakness, Other - EENT Eyes: absent: As Per HPI, Blind Spots, Blurred Vision, Change in Vision, Decreased Night Vision, Diplopia, Discharge, Dry Eye, Exophthalmos, Floaters, Irritation, Itchy Eyes, Loss of Peripheral Vision, Pain, Photophobia, Requires Corrective Lenses, Sees Flashes, Spots in Vision, Tunnel Vision, Other Visual Disturbances, Loss of Vision, Other Ears: absent: As Per HPI, Decreased Hearing, Ear Discharge, Ear Pain, Tinnitus, Abnormal Hearing, Disequilibrium, Dizziness, Other Nose/Mouth/Throat: absent: As Per HPI, Epistaxis, Nasal Congestion, Nasal Discharge, Nasal Obstruction, Nasal Trauma, Nose Pain, Post Nasal Drip, Sinus Pain, Sinus Pressure, Bleeding Gums, Change in Voice, Dental Pain, Dry Mouth, Dysphagia, Halitosis, Hoarsness, Lip Swelling, Mouth Lesions, Mouth Pain, Odynophagia, Sore Throat, Throat Swelling, Tongue Swelling, Facial Pain, Neck Pain, Neck Mass, Other - Cardiovascular Cardiovascular: absent: As Per HPI, Acrocyanosis, Chest Pain, Chest Pain at Rest , Chest Pain with Activity, Claudication, Diaphoresis, Dyspnea, Dyspnea on Exertion, Edema, Irregular Heart Rhythm, Pain Radiating to Arm/Neck/Jaw, Leg Edema, Leg Ulcers, Lightheadedness, Orthopnea, Palpitations, Paroxysmal Nocturnal Dyspnea, Pedal Edema, Radiating Pain, Rapid Heart Rate, Slow Heart Rate, Syncope, Other - Respiratory Respiratory: absent: As Per HPI, Cough, Dyspnea, Hemoptysis, Dyspnea on Exertion , Wheezing, Snoring, Stridor, Pain on Inspiration, Chest Congestion, Excessive Mucous Production, Change in Mucous Color, Pain with Coughing, Other - Gastrointestinal Gastrointestinal: absent: As Per HPI, Abdominal Pain, Belching, Bloating, Change in Bowel Habits, Change in Stool Character, Coffee Ground Emesis, Constipation, Cramping, Diarrhea, Dyspepsia, Dysphagia, Early Satiety, Excessive Flatus, Fecal Incontinence, Heartburn, Hematemesis, Hematochezia, Loose Stools, Melena, Nausea, Odynophagia, Temesmus, Vomiting, Other - Genitourinary Genitourinary: absent: As Per HPI, Change in Urinary Stream, Difficulty Urinating, Dysuria, Flank Pain, Hematuria, Pyuria, Nocturia, Urinary Incontinence, Urinary Frequency, Urinary Hesitance, Urinary Urgency, Voiding Freq/Small Amts, Freq UTI, Hx Renal/Bladder Calculi, Hx /Renal Surgery, Bladder Distension, Other - Musculoskeletal Musculoskeletal: absent: As Per HPI, Abnormal Gait, Arthralgias, Atrophy, Back Pain, Deformity, Joint Swelling, Limited Range of Motion, Loss of Height, Muscle Cramps, Muscle Weakness, Myalgias, Neck Pain, Numbness, Radiating Pain into Limb, Stiffness, Tingling, Other - Integumentary Integumentary: absent: As Per HPI, Acne, Alopecia, Bleeding Lesions, Change in Hair, Change in Nails, Change in Pigmentation, Changing Lesions, Dry Skin, Erythema, Furuncle, Hirsutism, Lesions, New Lesions, Non-Healing Lesions, Photosensitivity, Pruritus, Rash, Skin Pain, Skin Ulcer, Sores, Striae, Swelling , Unusual Bruising, Wounds, Jaundice, Other - Neurological Neurological: Syncope - Psychiatric Psychiatric: absent: As Per HPI, Abnormal Sleep Pattern, Anhedonia, Anxiety, Auditory Hallucinations, Behavioral Changes, Change in Appetite, Change in Libido, Confusion, Depression, Difficulty Concentrating, Hallucinations, Homicidal Ideation, Hopelessness, Irritability, Memory Loss, Mood Swings, Panic Attacks, Paranoia, Suicidal Ideation, Visual Hallucinations, Tactile Hallucinations, Other - Endocrine Endocrine: absent: As Per HPI, Change in Body Appearance, Change in Libido, Cold Intolorance, Deepening of Voice, Excessive Sweating, Fatigue, Flushing, Heat Intolorance, Increase in Ring/Shoe/Hat Size, Palpitations, Polydipsia, Polyphagia, Polyuria, Other - Hematologic/Lymphatic Hematologic: absent: As Per HPI, Easy Bleeding, Easy Bruising, Lymphadenopathy, Other Past Patient History - Infectious Disease Hx of Infectious Diseases: None - Past Medical History & Family History Past Medical History?: Yes - Past Social History Smoking Status: Never Smoked - CARDIAC Hx Hypertension: Yes - HEENT Hx HEENT Problems: Yes Other/Comment: HX: TONSILLITIS - ENDOCRINE/METABOLIC Hx Endocrine Disorders: Yes Hx Diabetes Mellitus Type 2: Yes - HEMATOLOGICAL/ONCOLOGICAL Hx Blood Disorders: Yes Other/Comment: HX: "LIPOSARCOMA"-RIGHT LEG LUMP-BUT NO FOLLOWUP TREATMENT PER DR. INMAN 2004-PER DR. DURÁN'S NOTES ON 11/21/16.(PT. CONFIRMED) - INTEGUMENTARY Hx Dermatological Problems: Yes Other/Comment: HX: RIGHT LEG LUMP DIAGNOSED "LIPOSARCOMA" BUT NO FOLLOWUP TREATMENT PER DR. INMAN 2004-PER DR. DURÁN'S NOTES OF 11/21/16.(PT. CONFIRMED) . HX: CYST ON BACK OF NECK(LEFT). - MUSCULOSKELETAL/RHEUMATOLOGICAL Hx Falls: No - PSYCHIATRIC Hx Substance Use: No - SURGICAL HISTORY Hx Tonsillectomy: Yes - ANESTHESIA Hx Anesthesia: Yes Hx Anesthesia Reactions: No Hx Malignant Hyperthermia: No Meds Allergies/Adverse Reactions: Allergies Allergy/AdvReac Type Severity Reaction Status Date / Time No Known Allergies Allergy Verified 12/03/16 08:26 - Medications Medications: Current Medications Sodium Chloride (Sodium Chloride 0.45%) 1,000 mls @ 75 mls/hr IV .[id number] [facility] Last Admin: 12/25/16 05:54 Dose: 75 mls/hr Pantoprazole Sodium 80 mg/ (Sodium Chloride) 100 mls @ 10 mls/hr IVPB .Q10H [facility] PRN Reason: 8 MG/HR Insulin Aspart (Novolog) 0 unit SC ACHS [facility] PRN Reason: Protocol Last Admin: 12/25/16 11:48 Dose: Not Given Meclizine HCl (Antivert) 25 mg PO BID [facility] Last Admin: 12/25/16 09:00 Dose: Not Given Physical Exam - Constitutional Appears: Non-toxic - Head Exam Head Exam: NORMAL INSPECTION - Eye Exam Eye Exam: Normal appearance - ENT Exam ENT Exam: Mucous Membranes Moist - Neck Exam Neck exam: Positive for: Full Rom - Respiratory Exam Respiratory Exam: NORMAL BREATHING PATTERN - Cardiovascular Exam Cardiovascular Exam: REGULAR RHYTHM - GI/Abdominal Exam GI & Abdominal Exam: Normal Bowel Sounds - Rectal Exam Rectal Exam: Deferred - Extremities Exam Extremities exam: Positive for: pedal edema - Back Exam Back exam: NORMAL INSPECTION - Neurological Exam Neurological exam: Alert, Oriented x3 - Psychiatric Exam Psychiatric exam: Normal Affect - Skin Skin Exam: Normal Color Results - Vital Signs Recent Vital Signs: Last Vital Signs Temp 98.1 F 12/25/16 16:00 Pulse 88 12/25/16 16:00 Resp 18 12/25/16 16:00 BP 128/77 12/25/16 16:00 Pulse Ox 100 12/25/16 16:00 - Labs Result Diagrams: 12/25/16 09:51 12/25/16 09:51 Labs: Laboratory Results - last 24 hr 12/24/16 12/24/16 12/24/16 17:23 17:47 20:55 WBC 12.6 H RBC 3.52 L Hgb 10.2 L Hct 29.9 L MCV 85.0 MCH 28.8 MCHC 33.9 RDW 13.3 Plt Count 282 MPV 7.2 Sodium Potassium Chloride Carbon Dioxide Anion Gap BUN Creatinine Est GFR ( Amer) Est GFR (Non-Af Amer) POC Glucose (mg/dL) 140 H Random Glucose Calcium Total Bilirubin AST ALT Alkaline Phosphatase Total Protein Albumin Globulin Albumin/Globulin Ratio Urine Color Straw Urine Clarity Clear Urine pH 5.0 Ur Specific [place] 1.020 Urine Protein Negative Urine Glucose (UA) 2+ H Urine Ketones Trace Urine Blood Negative Urine Nitrate Negative Urine Bilirubin Negative Urine Urobilinogen Normal Ur Leukocyte Esterase Neg Urine WBC (Auto) 1 Urine RBC (Auto) < 1 Blood Type Antibody Screen 12/24/16 12/25/16 12/25/16 21:02 06:43 09:51 WBC 6.4 RBC 2.79 L Hgb 8.1 L D Hct 23.8 L MCV 85.4 MCH 29.2 MCHC 34.2 RDW 13.7 Plt Count 222 MPV 7.1 L Sodium Potassium Chloride Carbon Dioxide Anion Gap BUN Creatinine Est GFR ( Amer) Est GFR (Non-Af Amer) POC Glucose (mg/dL) 326 H 161 H Random Glucose Calcium Total Bilirubin AST ALT Alkaline Phosphatase Total Protein Albumin Globulin Albumin/Globulin Ratio Urine Color Urine Clarity Urine pH Ur Specific [place] Urine Protein Urine Glucose (UA) Urine Ketones Urine Blood Urine Nitrate Urine Bilirubin Urine Urobilinogen Ur Leukocyte Esterase Urine WBC (Auto) Urine RBC (Auto) Blood Type Antibody Screen 12/25/16 12/25/16 12/25/16 09:51 11:09 11:28 WBC RBC Hgb Hct MCV MCH MCHC RDW Plt Count MPV Sodium 139 Potassium 3.7 Chloride 105 Carbon Dioxide 23 Anion Gap 15 BUN 22 H Creatinine 0.9 Est GFR ( Amer) > 60 Est GFR (Non-Af Amer) > 60 POC Glucose (mg/dL) 189 H Random Glucose 139 H Calcium 7.5 L Total Bilirubin 0.3 AST 17 D ALT 34 Alkaline Phosphatase 40 Total Protein 5.0 L Albumin 2.6 L D Globulin 2.4 Albumin/Globulin Ratio 1.1 Urine Color Urine Clarity Urine pH Ur Specific [place] Urine Protein Urine Glucose (UA) Urine Ketones Urine Blood Urine Nitrate Urine Bilirubin Urine Urobilinogen Ur Leukocyte Esterase Urine WBC (Auto) Urine RBC (Auto) Blood Type O POSITIVE Antibody Screen Negative 12/25/16 16:36 WBC RBC Hgb Hct MCV MCH MCHC RDW Plt Count MPV Sodium Potassium Chloride Carbon Dioxide Anion Gap BUN Creatinine Est GFR ( Amer) Est GFR (Non-Af Amer) POC Glucose (mg/dL) 189 H Random Glucose Calcium Total Bilirubin AST ALT Alkaline Phosphatase Total Protein Albumin Globulin Albumin/Globulin Ratio Urine Color Urine Clarity Urine pH Ur Specific [place] Urine Protein Urine Glucose (UA) Urine Ketones Urine Blood Urine Nitrate Urine Bilirubin Urine Urobilinogen Ur Leukocyte Esterase Urine WBC (Auto) Urine RBC (Auto) Blood Type Antibody Screen - EKG Data EKG shows normal: Sinus rhythm Assessment & Plan (1) Syncope Assessment and Plan: unclear etiology. likely dehydaration with orthostasis. recommend echocardiogram Status: Acute
[2016-12-25] MEDS: Pantoprazole 80 MG in Sodium Chloride 0.9% 100 ML IVPB SCH ×2 (19:34→22:13)
[2016-12-26] MEDS: Pantoprazole 80 MG in Sodium Chloride 0.9% 100 ML IVPB SCH ×2 (04:00→08:00)
[2016-12-26 06:44] LABS: HEMATOCRIT 30.1 % (35.0-51.0); MEAN CELL VOLUME 83.3 fL (80.0-94.0); MEAN CORPUSCULAR HEMOGLOBIN 28.7 pg (27.0-31.0); MEAN CORPUSCULAR HGB CONC 34.4 g/dL (33.0-37.0); MEAN PLATELET VOLUME 7.3 fL (7.2-11.7); RED CELL DISTRIBUTION WIDTH 14.4 % (11.5-14.5); WHITE BLOOD COUNT 6.7 K/uL (4.8-10.8)
[2016-12-26 07:52] VITALS: PULSE 75
[2016-12-26] MEDS: (Novolog) Insulin Aspart, Recombinant 100 u/ml 10 ml vial SC SCH ×2 (08:11→12:30)
--- NOTE | 2016-12-26 08:23 | CP.PCM.PN ---
Subjective - Date & Time of Evaluation Date of Evaluation: 12/26/16 Time of Evaluation: 08:10 - Subjective Subjective: Pt feels well exc weak. Had EGD (+) Gastritis and small ulcer. No CP,no SOB, no edema, nor palpitation Objective - Vital Signs/Intake and Output Vital Signs (last 24 hours): Temp Pulse Resp BP Pulse Ox 97.6 F 75 20 124/67 100 12/26/16 04:00 12/26/16 07:47 12/26/16 04:00 12/26/16 04:00 12/26/16 04:00 Intake and Output: 12/26/16 12/26/16 06:59 18:59 Intake Total 1075 Output Total 1900 Balance -825 - Medications Medications: Current Medications Sodium Chloride (Sodium Chloride 0.45%) 1,000 mls @ 75 mls/hr IV .[id number] [facility] Last Admin: 12/25/16 18:44 Dose: Not Given Pantoprazole Sodium 80 mg/ (Sodium Chloride) 100 mls @ 10 mls/hr IVPB .Q10H [facility] PRN Reason: 8 MG/HR Last Admin: 12/26/16 04:00 Dose: 10 mls/hr Insulin Aspart (Novolog) 0 unit SC ACHS [facility] PRN Reason: Protocol Last Admin: 12/26/16 08:11 Dose: Not Given Meclizine HCl (Antivert) 25 mg PO BID [facility] Last Admin: 12/25/16 18:42 Dose: 25 mg - Labs Labs: 12/26/16 06:29 12/25/16 09:51 PT 11.9 SECONDS (9.7-12.2) 12/24/16 12:25 INR 1.0 12/24/16 12:25 APTT 26 SECONDS (21-34) 12/24/16 12:25 - Constitutional Appears: No Acute Distress - Eye Exam Eye Exam: Normal appearance - ENT Exam ENT Exam: Mucous Membranes Moist - Respiratory Exam Respiratory Exam: Decreased Breath Sounds. absent: Chest Wall Tenderness, Rales , Rhonchi, Wheezes - Cardiovascular Exam Cardiovascular Exam: REGULAR RHYTHM, +S1, +S2. absent: Gallop, JVD, Murmur - GI/Abdominal Exam GI & Abdominal Exam: Soft. absent: Tenderness, Mass - Skin Skin Exam: absent: Abrasion, Dry, Erythema Assessment and Plan - Assessment and Plan (Free Text) Assessment: syncope 2 GI Bleed HTN, NIDDM for Echo; Discharge if okay w/ cardio
[2016-12-26 08:34] VITALS: BP 132/81; RESP 17; TEMP 98.2
[2016-12-26] MEDS: Sodium Chloride 0.45% 1,000 ML IV SCH (09:00)
--- NOTE | 2016-12-28 15:39 | CARD ---
APPROVED REPORT EXAM: Two-dimensional and M-mode echocardiogram with Doppler and color Doppler. Other Information Quality : GoodRhythm : NSR INDICATION Syncope RISK FACTORS Hypertension Diabetes 2D DIMENSIONS IVSd1.1 (0.7-1.1cm)LVDd4.3 (3.9-5.9cm) PWd1.2 (0.7-1.1cm)LVDs2.6 (2.5-4.0cm) FS (%) 39.5 %LVEF (%)70.4 (>50%) M-Mode DIMENSIONS Left Atrium (MM)3.41 (2.5-4.0cm)Aortic Root3.86 (2.2-3.7cm) Aortic Cusp Exc.2.40 (1.5-2.0cm) Mitral Valve MV E Sycfrfui96.9cm/sMV A Pgxhvlid16.5cm/sE/A ratio0.8 TDI E/Lateral E'0.0E/Medial E'0.0 Tricuspid Valve TR Peak Cpgilaph140cq/sTR Peak Gr.[id number] LEFT VENTRICLE The left ventricle is normal size. There is normal left ventricular wall thickness. The left ventricular function is normal. The left ventricular ejection fraction is within the normal range. No regional wall motion abnormalities noted. Transmitral Doppler flow pattern is Grade I-abnormal relaxation pattern. No left ventricle thrombus noted on this study. LV filling pressure is normal There is no ventricular septal defect visualized. There is no left ventricular aneurysm. There is no mass noted in the left ventricle. RIGHT VENTRICLE The right ventricle is normal size. There is normal right ventricular wall thickness. The right ventricular systolic function is normal. ATRIA The left atrium size is normal. The right atrium size is normal. The interatrial septum is intact with no evidence for an atrial septal defect. AORTIC VALVE The aortic valve is normal in structure and function. No aortic regurgitation is present. There is no aortic valvular stenosis. There is no aortic valvular vegetation. MITRAL VALVE The mitral valve is normal in structure and function. There is no evidence of mitral valve prolapse. There is no mitral valve stenosis. There is no mitral valve regurgitation noted. TRICUSPID VALVE The tricuspid valve is normal in structure and function. There is no tricuspid valve regurgitation noted. There is no tricuspid valve prolapse or vegetation. There is no tricuspid valve stenosis. PULMONIC VALVE The pulmonary valve is normal in structure and function. There is no pulmonic valvular regurgitation. There is no pulmonic valvular stenosis. GREAT VESSELS The aortic root is normal in size. The ascending aorta is normal in size. The pulmonary artery is normal. The IVC is normal in size and collapses >50% with inspiration. PERICARDIAL EFFUSION The pericardium appears normal. There is no pleural effusion. <Conclusion> The left ventricular function is normal. The left ventricular ejection fraction is within the normal range. No regional wall motion abnormalities noted. No left ventricle thrombus noted on this study. LV filling pressure is normal
--- NOTE | 2016-12-29 13:04 | CARD ---
APPROVED REPORT EKG Measurement Heart [id number] <Conclusion> Sinus tachycardia Otherwise normal ECG
== END 2016-12-26 13:18 | disposition home or self-care (01) | DRG 384 ==
LOC: C.ER 10:48 → C.9E 15:23 → C.6T 16:45
PROVIDERS: ADMIT Internal Medicine; ATTEND Internal Medicine
PROC: 0DB88ZX Excision of Small Intestine, Via Natural or Artificial Opening Endoscopic, Diagnostic (ICD-10-PCS; principal; 2016-12-25 11:30)
DX: K25.3 Acute gastric ulcer without hemorrhage or perforation (principal); I10 Essential (primary) hypertension; K92.1 Melena; B96.81 Helicobacter pylori [H. pylori] as the cause of diseases classified elsewhere; E11.9 Type 2 diabetes mellitus without complications; E86.0 Dehydration; D64.9 Anemia, unspecified; R55 Syncope and collapse; W18.39XA Other fall on same level, initial encounter; I25.10 Atherosclerotic heart disease of native coronary artery without angina pectoris; S00.83XA Contusion of other part of head, initial encounter; Z79.4 Long term (current) use of insulin; Z79.82 Long term (current) use of aspirin; Z85.831 Personal history of malignant neoplasm of soft tissue